=== PATIENT | female | born 1990 | race African-American/Black ===

== ENCOUNTER 2024-05-09 23:21 | Emergency (ER) | payer OTHER, SELFPAY ==
[2024-05-09 23:22] VITALS: BP 106/75; PULSE 73; RESP 16; TEMP 36.6; O2SAT 98; BMI 29.1
--- NOTE | 2024-05-10 00:22 | RAD_ITS ---
EXAM: XR CHEST, 1 VIEW CLINICAL INDICATION: PAIN TECHNIQUE: Frontal view of the chest. COMPARISON: No relevant prior studies available. FINDINGS: LUNGS AND PLEURAL SPACES: Unremarkable. No consolidation or edema. No pneumothorax. No effusion. HEART: Unremarkable. Cardiac silhouette not enlarged. MEDIASTINUM: Central airways and mediastinal contour are unremarkable. 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 SOFT TISSUES: Unremarkable. RAD/Chest 1 View (Portable) IMPRESSION: 1. No acute abnormalities identified in the chest. 2. 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 Electronically Signed: Ramy Griffith MD at 1:17 EDT ,
[2024-05-10 00:41] LABS: Absolute Neutrophil Count 2.4 X10^3/uL (2.0-7.7); Basophil# 0.04 X10^3/uL; Basophil% 0.8 % (0-1); Eosinophil# 0.26 X10^3/uL; Eosinophils% 5.1 % (0-5); Hematocrit 37.5 % (37-47); Hemoglobin 11.7 g/dL (12.0-15.0); Lymphocyte % 37.5 % (19-41); Mean Corp Hgb Conc 31.2 g/dL (32-36); Mean Corpuscular Hgb 24.2 pg (27.0-32.0); Mean Corpuscular Volume 77.5 fL (81-99); Mean Platelet Vol. 8.5 fl (6.2-12.0); Monocyte# 0.48 X10^3/uL; Monocyte% 9.5 % (0-10); NRBC Flagged by Analyzer 0 % (0-5); Neutrophil # 2.36 X10^3/uL (2.7-7.7); Neutrophil % 46.7 % (47-70); Platelet Count 369 K/mm3 (150-450); RBC Distribution Width SD 47.8 fl (35.1-43.9); Red Blood Count 4.84 M/mm3 (4.2-5.4); White Blood Count 5.1 K/mm3 (4.4-11.0)
[2024-05-10 01:03] LABS: AST(SGOT) 15 U/L (15-37); Alanine Aminotransfer ALT/SGPT 13 U/L (13-56); Albumin, Serum 3.6 g/dL (3.2-5.0); Alkaline Phosphatase 63 U/L (45-117); Anion Gap 5 (5-15); BUN 7 mg/dL (7-18); BUN/Creat Ratio 9.4 RATIO (10-20); Bilirubin, Direct 0.08 mg/dL (0.00-0.30); Calcium,Total 9.1 mg/dL (8.5-10.1); Chloride 108 mmol/L (98-107); Creatinine, Serum 0.75 mg/dL (0.55-1.02); EST Glomerular Filtration Rate 95 mL/min (>60); Est Glom Filt Rate - Afr Amer 114 mL/min (>60); Estimated Creatinine Clearance 111.16 ml/min; Globulin 3.7 g/dL (2.2-4.2); Glucose 102 mg/dL (74-106); Potassium 3.5 mmol/L (3.5-5.1); Protein, Total 7.3 g/dL (6.4-8.2); Sodium Level 140 mmol/L (136-145)
[2024-05-10 01:05] LABS: Internal QC Validated? YES +Cl - CLEAR BKGD; Pregnancy, Serum, hCG Quali. NEGATIVE Negative; Record Kit Lot#, Serum Preg. 772476
--- NOTE | 2024-05-10 01:16 | EDS_ITS ---
HPI History of Present Illness Chief Complaint: General Illness Informant: patient Narrative Narrative: Use of hospital computer mime artist was utilized in the care of this patient. 33-year-old female states that for the past couple days she has had generalized muscle soreness more pronounced in the right shoulder. Patient also states that she has not had a period for about 2 months. Other than this she denies other symptoms. Patient answers minimally to questions even if they are open-ended questions. Is very difficult to get a history from her as she has a paucity of information it seems. She denies any known trauma. She denies shortness of breath or chest pain. Patient wonders if she had a fever this morning. She is not febrile here in the department. She denies any cough runny nose or sore throat. No dysuria. [facility] Medical History Broken arm Home Medications ?Medication ?Instructions ?Recorded ?Last Taken ?Type NK 05/09/24 Unknown History Allergy/AdvReac Type Severity Reaction Status Date / Time ibuprofen AdvReac PT UNSURE Verified 05/09/24 23:47 OF REACTION Social History Smoking Status: Never smoker ROS ROS ED Constitutional Constitutional ED: Reports subjective; Denies chills or weight loss Eyes Eyes: Denies change in vision or diplopia ENT ENT ED: Denies ear pain, rhinorrhea or sore throat Cardiovascular Cardiovascular: Denies chest pain, orthopnea, palpitations or racing heartbeat Respiratory/Chest Respiratory/Chest: Denies cough, dyspnea or orthopnea Gastrointestinal Gastrointestinal: Denies abdominal pain, diarrhea, nausea or vomiting Genitourinary Genitourinary ED: Reports other Details: No. X 2 months ; Denies dysuria, hematuria or urinary frequency Musculoskeletal Musculoskeletal: Reports myalgias and other Details: See history of present illness ; Denies arthralgias Integumentary Denies abscess or rash Neurologic Neurologic: Denies headache(s) or weakness Psychiatric Psychiatric: Denies anxiety, depression, suicidal ideation or suicidal thoughts Endocrine Endocrinology: Denies polydipsia, polyphagia or polyuria Allergic/Immunologic Allergic/Immunologic ED: Denies mouth swelling, tongue swelling or urticaria EXAM Physical Exam Const Vital Signs: 05/09/24 23:22 05/09/24 23:48 Temperature 98 F Temperature Source Oral Pulse Rate 73 Respiratory Rate 16 Respiratory Effort Normal Non-Labored Respiratory Pattern Normal Blood Pressure 106/75 Blood Pressure Mean 85 Pulse Ox 98 Oxygen Delivery Method Room Air Positive well nourished and well developed General Appearance ED: well developed HEENT Reports normocephalic, head/scalp atraumatic and moist mucous membranes Eyes PERRL and EOMs intact bilaterally Neck no lymphadenopathy, supple and no JVD Resp normal respiratory effort and clear to auscultation bilaterally Cardio regular rate, regular rhythm and no murmurs GI normal to inspection, nondistended, normoactive bowel sounds and non-tender Palpation: soft Back/Spine no CVA tenderness and normal ROM Extremity normal to inspection General Extremety ED: Negative for edema General Extremity: Negative for edema Neuro oriented x3 and CN's II-XII intact bilaterally Sensorium / Orientation: alert Motor Exam: strength 5/5 throughout Psych mental status grossly normal Mood & Affect: Negative for depressed or tearful Skin no rashes or lesions noted and no wounds MDM MDM MDM Narrative Medical decision making narrative: Differential diagnosis could include viral syndrome myositis dehydration electrolyte abnormalities White count 5.1 hemoglobin 11.7 platelet count of 369 sodium potassium within normal limits glucose of 102 test is negative normal LFTs. CO2 is 27 anion gap is 5. My independent interpretation the chest x-ray is no acute process. Patient is normal tensive she is not tachycardic she is afebrile. Unfortunately as explained to the patient her symptoms are very nonspecific. I recommend she take Tylenol and or Motrin. She she can follow-up with primary care if not improving but if she does develop some new symptoms we are happy to see her back. Patient asked for referral to gynecology you can give her refer her to them as well History & Record Review Discussion w/independent historian: Patient Lab Data Attestation: I reviewed the patient's lab results. Labs: Laboratory Results - last 24 hr 05/10/24 00:34 WBC 5.1 RBC 4.84 Hgb 11.7 L Hct 37.5 MCV 77.5 L MCH 24.2 L MCHC 31.2 L RDW Std Deviation 47.8 H RDW Coeff of Shalini 17.0 H Plt Count 369 MPV 8.5 Immature Gran % (Auto) 0.400 Neut % (Auto) 46.7 L Lymph % (Auto) 37.5 [place] % (Auto) 9.5 Eos % (Auto) 5.1 H Baso % (Auto) 0.8 Absolute Neuts (auto) 2.4 Absolute Lymphs (auto) 1.90 Nucleated RBC % 0 Sodium 140 Potassium 3.5 Chloride 108 H Carbon Dioxide 27.0 Anion Gap 5 BUN 7 Creatinine 0.75 Estim Creat Clear Calc 111.16 Est GFR (MDRD) Af Amer 114 Est GFR (MDRD) Non-Af 95 BUN/Creatinine Ratio 9.4 L Glucose 102 Calcium 9.1 Total Bilirubin 0.30 Direct Bilirubin 0.08 AST 15 ALT 13 Alkaline Phosphatase 63 Total Protein 7.3 Albumin 3.6 Globulin 3.7 Serum , Qual NEGATIVE Radiography Diagnostic Testing: Clinical Impression(s) from Imaging Studies Chest X-Ray 05/10/24 00:22 IMPRESSION: 1. No acute abnormalities identified in the chest. 2. 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 Electronically Signed: Ramy Griffith MD at 1:17 EDT , Discharge Plan Triage Chief Complaint: General Illness ED Provider: Quinn Hooker Dx/Rx/DC Orders Clinical Impression: Myalgia, Amenorrhea Prescriptions: No Action NK Primary Care Provider: Care Physician,No Primary Referrals: Ayah Tinoco MD [Med Staff - Active Staff] - 3-5 Days if not improving Care Physician,No Primary [Primary Care Provider] - Lesa Vargas NP, NAIL ASSEMBLY MACHINE OPERATOR-C [Med Staff - Adv Practice Prof] - As soon as possible (for gynecology ) Print Language: Occitan Disposition Disposition: Home, Self Care
[2024-05-10 02:06] VITALS: BP 98/57; PULSE 78; RESP 16; TEMP 36.6; O2SAT 97
== END 2024-05-10 02:13 | disposition home or self-care (01) ==
PROVIDERS: Emergency Provider Emergency Medicine; Visit Provider Emergency Medicine
DX: M79.10 Myalgia, unspecified site (principal); N91.2 Amenorrhea, unspecified
CPT/HCPCS: 71045; 80048; 80076; 84703; 85025; 99283; A4216

== ENCOUNTER 2024-05-19 13:18 | Emergency (ER) | payer OTHER, MEDICAID, SELFPAY ==
[2024-05-19 13:18] VITALS: BP 112/78; PULSE 91; RESP 18; TEMP 36.8; O2SAT 100; BMI 30.1
--- NOTE | 2024-05-19 14:33 | EDS_ITS ---
HPI HPI - Female History of Present Illness Chief Complaint: Vag Bleeding Detail of Chief Complaint: Vaginal bleeding Informant: patient Narrative Narrative: Patient presents with vaginal bleeding that started 15 days ago. Patient states that she missed a period in March and then started having vaginal bleeding 15 days ago and continues to bleed. She is going through about 3 pads per day. She denies clots. She tells me she is not bleeding heavily. She has history of polycystic ovarian syndrome. She does not have an SEAMING MACHINE OPERATOR here in the [facility] as she is from [facility] and speaks Creole. Used iPad per diem interpreter to obtain history. Patient denies feeling lightheaded or dizzy. She denies abdominal pain. She does not think she is . [facility] Medical History Broken arm Home Medications ?Medication ?Instructions ?Recorded ?Last Taken ?Type norethindrone acetate 5 mg tablet 5 mg PO DAILY #30 tabs 05/19/24 Unknown Rx Allergy/AdvReac Type Severity Reaction Status Date / Time ibuprofen AdvReac PT UNSURE Verified 05/19/24 13:20 OF REACTION Social History Smoking Status: Never smoker ROS ROS ED Review of Systems ROS Unobtainable: other Constitutional Constitutional ED: Reports lethargy; Denies chills, fever(s), sweats or weight loss Eyes Eyes: Denies blurry vision, change in vision or diplopia ENT ENT ED: Denies rhinorrhea or sore throat Cardiovascular Cardiovascular: Reports chest pain and racing heartbeat; Denies orthopnea Respiratory/Chest Respiratory/Chest: Reports dyspnea and dyspnea on exertion; Denies cough, orthopnea or sputum Gastrointestinal Gastrointestinal: Denies abdominal pain, diarrhea, nausea or vomiting Genitourinary Genitourinary ED: Reports other Details: Vaginal bleeding ; Denies dysuria, hematuria or urinary frequency Musculoskeletal Musculoskeletal: Denies arthralgias, back pain, myalgias or neck pain Integumentary Denies abscess, Abrasions or rash Neurologic Neurologic: Denies headache(s) or weakness Psychiatric Psychiatric: Denies anxiety, depression or suicidal thoughts Endocrine Endocrinology: Denies polydipsia, polyphagia or polyuria Hematologic/Lymphatic Hematologic/Lymphatic: Denies easy bleeding, easy bruising or lymphadenopathy Allergic/Immunologic Allergic/Immunologic ED: Denies mouth swelling, tongue swelling or urticaria EXAM Physical Exam Const Vital Signs: 05/19/24 13:18 05/19/24 15:18 Temperature 98.2 F Temperature Source Oral Pulse Rate 91 67 Respiratory Rate 18 16 Blood Pressure 112/78 118/78 Blood Pressure Mean 89 91 Pulse Ox 100 99 Oxygen Delivery Method Room Air Room Air Positive well nourished and well developed General Appearance ED: well developed and NAD HEENT Reports TM's clear and moist mucous membranes normocephalic and atraumatic; Negative for trauma or tenderness Tympanic Membrane ED: Yes TM's clear Eyes PERRL and EOMs intact bilaterally General Eye ED: Negative for pale conjunctiva or scleral icterus Neck no lymphadenopathy, supple and no JVD General: Negative for tenderness Chest Wall inspection of chest normal and palpation of chest normal Chest: Negative for tenderness Resp normal respiratory effort and clear to auscultation bilaterally Effort and Inspection: Negative for respiratory distress or pain with movement Auscultation: Negative for rhonchi, wheezes or diminished lung sounds Cardio regular rate, regular rhythm, S1 normal heart sound, S2 normal heart sound and no murmurs Peripheral Pulses: pulses 2+ throughout GI normal to inspection, nondistended, normoactive bowel sounds, soft to palpation, non-tender, non-distended and no masses Back/Spine no CVA tenderness and no thoracic nor lumbar tenderness Extremity normal to inspection General Extremety ED: Negative for edema General Extremity: Negative for edema Neuro oriented x3, CN's II-XII intact bilaterally, no sensory deficits noted and gait normal Sensorium / Orientation: awake, alert, oriented to person, oriented to place and oriented to time Motor Exam: strength 5/5 throughout and strength abnormal Psych mental status grossly normal Skin no rashes or lesions noted and no wounds MDM MDM MDM Narrative Medical decision making narrative: Patient presents with vaginal bleeding x 15 days. History of polycystic ovarian syndrome. IV line established. CBC with differential count 5.7 with hemoglobin 11.9 and platelet count of 294. hCG was negative. Urinalysis normal. Clinically she looks well. Stable vital signs. Discussed case with SEAMING MACHINE OPERATOR on- call Dr. Boone who asked that I start patient on Aygestin and set up outpatient follow-up for her next week on May 23. Patient discharged to home in stable condition advised return if persistent heavy bleeding, passing clots, lightheadedness, or condition should worsen anyway. Lab Data Attestation: I reviewed the patient's lab results. Labs: Laboratory Results - last 24 hr 05/19/24 05/19/24 14:38 15:40 WBC 5.7 RBC 4.88 Hgb 11.9 L Hct 38.2 MCV 78.3 L MCH 24.4 L MCHC 31.2 L RDW Std Deviation 50.2 H RDW Coeff of Shalini 17.7 H Plt Count 394 MPV 8.9 Immature Gran % (Auto) 0.200 Neut % (Auto) 44.1 L Lymph % (Auto) 37.7 [place] % (Auto) 11.8 H Eos % (Auto) 5.5 H Baso % (Auto) 0.7 Absolute Neuts (auto) 2.5 Absolute Lymphs (auto) 2.14 Nucleated RBC % 0 Serum , Qual NEGATIVE Urine Color Yellow Urine Clarity Clear Urine pH 8.0 Ur Specific [place] 1.015 Urine Protein Negative Urine Glucose (UA) Normal Urine Ketones Negative Urine Occult Blood 250 H Urine Nitrite Negative Urine Bilirubin Negative Urine Urobilinogen Normal Ur Leukocyte Esterase Negative Urine RBC 10-25 SEEN Urine WBC 0 SEEN Ur Squamous Epith Cells 0-5 SEEN Urine Bacteria 0 SEEN Urine Mucus 0 SEEN Discharge Plan Triage Chief Complaint: Vag Bleeding ED Provider: Efrain Larios Dx/Rx/DC Orders Clinical Impression: DUB (dysfunctional uterine bleeding) Prescriptions: New norethindrone acetate 5 mg tablet 5 mg PO DAILY Qty: 30 0RF Rx Instructions: 1 tab bid for 3 days then 1 tab daily Primary Care Provider: Care Physician,No Primary Referrals: Bekah Boone MD [Med Staff - Active Staff] - 05/23/24 11:40 am Care Physician,Diamond Primary [Primary Care Provider] - Print Language: Namibian Creole
[2024-05-19 14:45] LABS: Absolute Lymphocyte Count 2.14 X10^3/uL (0.83-4.51); Absolute Neutrophil Count 2.5 X10^3/uL (2.0-7.7); Basophil# 0.04 X10^3/uL; Basophil% 0.7 % (0-1); Eosinophil# 0.31 X10^3/uL; Eosinophils% 5.5 % (0-5); Hematocrit 38.2 % (37-47); Hemoglobin 11.9 g/dL (12.0-15.0); Lymphocyte # 2.14 X10^3/ul (0.83-4.51); Lymphocyte % 37.7 % (19-41); Mean Corp Hgb Conc 31.2 g/dL (32-36); Mean Corpuscular Hgb 24.4 pg (27.0-32.0); Mean Corpuscular Volume 78.3 fL (81-99); Mean Platelet Vol. 8.9 fl (6.2-12.0); Monocyte# 0.67 X10^3/uL; Monocyte% 11.8 % (0-10); NRBC Flagged by Analyzer 0 % (0-5); Neutrophil # 2.51 X10^3/uL (2.7-7.7); Neutrophil % 44.1 % (47-70); Platelet Count 394 K/mm3 (150-450); RBC Distribution Width CV 17.7 % (11.6-14.6); RBC Distribution Width SD 50.2 fl (35.1-43.9); Red Blood Count 4.88 M/mm3 (4.2-5.4); White Blood Count 5.7 K/mm3 (4.4-11.0)
[2024-05-19 15:08] LABS: Internal QC Validated? YES +Cl - CLEAR BKGD; Pregnancy, Serum, hCG Quali. NEGATIVE Negative
[2024-05-19 15:18] VITALS: BP 118/78; PULSE 67; RESP 16; O2SAT 99
[2024-05-19 15:51] LABS: Bacteria 0 SEEN /hpf (None Seen); Mucous, Urine 0 SEEN /hpf (<or=2+); White Blood Cells 0 SEEN /hpf (0-5)
[2024-05-19 15:54] LABS: Color, Urine Yellow (Yellow); Glucose, Dipstick Normal (Normal); Ketone-Dipstick Negative (Negative); Leukocyte Esterase-Dipstick Negative /ul (Negative); Nitrite-Dipstick Negative (Negative); Occult Blood-Urine 250 /ul (Negative); Protein-Dipstick Negative (Negative); Specific Gravity, Urine 1.015 (1.002-1.030); Urine Bilirubin Dipstick Negative (Negative); Urine Clarity Clear (Clear); Urine Urobilinogen Normal (Normal)
[2024-05-19 16:02] LABS: Red Blood Cells-Urine 10-25 SEEN /hpf (0-5); Squamous Epithelial Cells - UA 0-5 SEEN /hpf (5-10)
[2024-05-19 16:43] VITALS: BP 118/76; PULSE 64; RESP 16; TEMP 36.3; O2SAT 99
== END 2024-05-19 16:44 | disposition home or self-care (01) ==
LOC: ED 14:56
PROVIDERS: Emergency Provider Emergency Medicine; Referring Provider Emergency Medicine; Visit Provider Emergency Medicine
DX: N93.8 Other specified abnormal uterine and vaginal bleeding (principal)
CPT/HCPCS: 81001; 84703; 85025; 99282

== ENCOUNTER → 2024-05-23 | Outpatient (CLI) | payer MEDICAID, SELFPAY ==
[2024-05-23 12:48] LABS: hCG Titer Quant., Serum < 1 mIU/mL (1-3)
[2024-05-23 12:51] LABS: T4 Free Direct 0.81 ng/dL (0.76-1.46)
[2024-05-29 15:10] LABS: Thyroid Peroxidase AB 13 IU/mL (0-34)
[2024-05-31 10:09] LABS: HPV APTIMA, High Risk Negative (Negative)
== END | disposition home or self-care (01) ==
PROVIDERS: Referring Provider Nurse Practitioner Women's Health; Visit Provider Nurse Practitioner Women's Health
DX: Z12.4 Encounter for screening for malignant neoplasm of cervix (principal); Z11.3 Encounter for screening for infections with a predominantly sexual mode of transmission; N93.8 Other specified abnormal uterine and vaginal bleeding
CPT/HCPCS: 36415; 84439; 84443; 84702; 86376; 87070; 87205; 87491; 87591; 87624; 88175; G0145

== ENCOUNTER 2024-05-26 17:22 | Emergency (ER) | payer MEDICAID, SELFPAY ==
[2024-05-26 17:24] VITALS: BP 117/75; PULSE 80; RESP 14; TEMP 36.6; O2SAT 98; BMI 31.9
[2024-05-26 18:21] VITALS: BP 108/80; BP 110/70; BP 116/84; PULSE 73; PULSE 90
[2024-05-26 18:23] VITALS: BP 109/82; PULSE 80; RESP 19; O2SAT 98
[2024-05-26 18:37] LABS: Absolute Lymphocyte Count 2.47 X10^3/uL (0.83-4.51); Absolute Neutrophil Count 3.7 X10^3/uL (2.0-7.7); Basophil# 0.03 X10^3/uL; Basophil% 0.4 % (0-1); Eosinophil# 0.15 X10^3/uL; Eosinophils% 2.1 % (0-5); Hematocrit 36.4 % (37-47); Hemoglobin 11.4 g/dL (12.0-15.0); Lymphocyte # 2.47 X10^3/ul (0.83-4.51); Lymphocyte % 34.9 % (19-41); Mean Corp Hgb Conc 31.3 g/dL (32-36); Mean Corpuscular Hgb 24.1 pg (27.0-32.0); Mean Corpuscular Volume 76.8 fL (81-99); Monocyte# 0.69 X10^3/uL; Monocyte% 9.8 % (0-10); NRBC Flagged by Analyzer 0 % (0-5); Neutrophil # 3.73 X10^3/uL (2.7-7.7); Neutrophil % 52.8 % (47-70); Platelet Count 383 K/mm3 (150-450); RBC Distribution Width CV 17.6 % (11.6-14.6); RBC Distribution Width SD 48.8 fl (35.1-43.9); Red Blood Count 4.74 M/mm3 (4.2-5.4); White Blood Count 7.1 K/mm3 (4.4-11.0)
[2024-05-26 18:52] LABS: Internal QC Validated? YES +Cl - CLEAR BKGD; Pregnancy, Serum, hCG Quali. NEGATIVE Negative
[2024-05-26 19:00] VITALS: BP 106/65; PULSE 65; RESP 15; O2SAT 99
--- NOTE | 2024-05-26 20:42 | EDS_ITS ---
HPI History of Present Illness Chief Complaint: Dizziness Detail of Chief Complaint: Lightheadedness and vaginal bleeding Informant: patient Onset/Context/Timing Onset: Days Context: Sudden Onset Timing: Continuous and Waxes and wanes Quality: Vaginal bleeding Location: Vaginal bleeding Current Severity: Mild Maximum Severity: Moderate Worsened by: Unknown Relieved by: Methergine initially worked Associated Symptoms Associated Symptoms: Lightheadedness Narrative Narrative: Patient is a 33-year-old [place] Creole speaking woman. However she was able to answer some of my questions even for the flight engineer performance qualified translated for her. She apparently was seen a couple of days ago by Dr. Gates. She was placed on medication. I have been made aware that they registers a new patient and reason why prior visits are not available. I asked the registration person to give me her old number so I can review Dr. Gates's note and her prior laboratory tests and ultrasound. Patient began to bleed yesterday heavier than she was. She went through 3 pads in 24 hours. By the time I was able to speak with her she states the bleeding stopped. She took the medicine prior to coming in. She states she did not discontinue taking the medicine she was prescribed. She denies symptoms of . She denies any bleeding disorder, specifically von Willebrand's Prior similar symptoms: Yes Recent Illness/Hospitalization: Yes PFSH PFSH Medical History no medical history Home Medications ?Medication ?Instructions ?Recorded ?Last Taken ?Type norethindrone acetate 5 mg tablet 5 mg PO DAILY 05/26/24 Unknown History Allergy/AdvReac Type Severity Reaction Status Date / Time ibuprofen (From Motrin) AdvReac Nausea Verified 05/26/24 17:32 Surgical History no surgical history Social History Smoking Status: Never smoker ROS ROS ED Constitutional Constitutional ED: Denies chills or fever(s) Cardiovascular Cardiovascular: Denies chest pain or palpitations Respiratory/Chest Respiratory/Chest: Denies dyspnea or dyspnea on exertion Gastrointestinal Gastrointestinal: Denies abdominal pain, nausea or vomiting Musculoskeletal Musculoskeletal: Denies back pain Hematologic/Lymphatic Hematologic/Lymphatic: Reports systems reviewed and no addt'l complaints, except as documented EXAM Physical Exam Const Vital Signs: 05/26/24 17:24 05/26/24 18:21 05/26/24 18:23 Temperature 98 F Temperature Source Temporal Pulse Rate 80 80 Pulse Rate [Lying] 73 Pulse Rate [Sitting (for 1 minute prior to obtaining)] 90 Pulse Rate [Standing (for 1 minute prior to obtaining)] 90 Respiratory Rate 14 19 H Blood Pressure 117/75 109/82 H Blood Pressure [Lying] 110/70 Blood Pressure [Sitting (for 1 minute prior to obtaining)] 108/80 Blood Pressure [Standing (for 1 minute prior to obtaining)] 116/84 H Blood Pressure Mean 89 91 Blood Pressure Mean [Lying] 83 Blood Pressure Mean [Sitting (for 1 minute prior to obtaining)] 89 Blood Pressure Mean [Standing (for 1 minute prior to obtaining)] 94 Pulse Ox 98 98 Oxygen Delivery Method Room Air Room Air 05/26/24 19:00 Temperature Temperature Source Pulse Rate 65 Pulse Rate [Lying] Pulse Rate [Sitting (for 1 minute prior to obtaining)] Pulse Rate [Standing (for 1 minute prior to obtaining)] Respiratory Rate 15 Blood Pressure 106/65 Blood Pressure [Lying] Blood Pressure [Sitting (for 1 minute prior to obtaining)] Blood Pressure [Standing (for 1 minute prior to obtaining)] Blood Pressure Mean 78 Blood Pressure Mean [Lying] Blood Pressure Mean [Sitting (for 1 minute prior to obtaining)] Blood Pressure Mean [Standing (for 1 minute prior to obtaining)] Pulse Ox 99 Oxygen Delivery Method Room Air Positive well nourished and well developed Constitutional Narrative: Orthostatic vital signs were normal. General Appearance ED: well developed and NAD; Negative for pallor HEENT Reports moist mucous membranes HEENT Narrative: Head is atraumatic normocephalic. Ears normal. Eyes PERRL and EOMs intact bilaterally General Eye ED: Negative for pale conjunctiva Neck no lymphadenopathy, supple and no JVD Resp normal respiratory effort and clear to auscultation bilaterally Cardio regular rate, regular rhythm, S1 normal heart sound, S2 normal heart sound and no murmurs GI normal to inspection, nondistended, normoactive bowel sounds, non-tender, non- distended and no masses; Negative for hepatosplenomegaly Back/Spine no CVA tenderness Extremity normal to inspection Neuro oriented x3 and CN's II-XII intact bilaterally Sensorium / Orientation: alert Psych mental status grossly normal Skin no rashes or lesions noted, no wounds and skin turgor normal General Skin Exam: Negative for jaundice or pallor MDM MDM MDM Narrative Medical decision making narrative: Based on initial symptoms documented by triage nurse orthostatic vital signs were obtained, CBC to assess H&H and platelet count and serum test because there was no prior studies available. It was not until I used the flight engineer performance qualified service that I was made aware that she was seen by Dr. Gates earlier this month. Lab Data Attestation: I reviewed the patient's lab results. Lab results narrative: Patient's H and H was 11.7 and 36 on November 07. There was no significant change when blood work was obtained May [address] Gates. She was seen on the first for amenorrhea. She did have an ultrasound which revealed enlarged endometrial wall/thickening. There also was a fibroid that was noted and necrotic. Her case was discussed with Dr. Bekah Boone. Patient is anemic with microcytic indices. H&H 11.4 and 36.5 with a MCV of 76.8. Serum test is negative. Labs: Laboratory Results - last 24 hr 05/26/24 17:52 WBC 7.1 RBC 4.74 Hgb 11.4 L Hct 36.4 L MCV 76.8 L MCH 24.1 L MCHC 31.3 L RDW Std Deviation 48.8 H RDW Coeff of Shalini 17.6 H Plt Count 383 MPV 9.0 Immature Gran % (Auto) 0.000 Neut % (Auto) 52.8 Lymph % (Auto) 34.9 [place] % (Auto) 9.8 Eos % (Auto) 2.1 Baso % (Auto) 0.4 Absolute Neuts (auto) 3.7 Absolute Lymphs (auto) 2.47 Nucleated RBC % 0 Serum , Qual NEGATIVE Antibody Screen NEGATIVE Treatment and Re-Evaluation :: Since patient had ultrasound and has had 2 prior visits for GEOMORPHOLOGIST issues in my opinion pelvic exam is not required at this time since her bleeding stopped. She will need to follow-up with Dr. Don Dickey. Discharge Plan Triage Chief Complaint: Dizziness ED Provider: Chano Denney Dx/Rx/DC Orders Clinical Impression: Menorrhagia, Microcytic anemia Instructions: ED Anemia, Iron-Deficiency (Adult), ED Heavy Menstrual Bleeding Prescriptions: No Action norethindrone acetate 5 mg tablet 5 mg PO DAILY Rx Instructions: 1 tab twice daily for three days then 1 tab daily Primary Care Provider: Care Physician,No Primary Referrals: Bekah Boone MD [Med Staff - Active Staff] - 5-7 Days Care Physician,No Primary [Primary Care Provider] - Activity Restrictions/Additional Instructions: Take the medication you were prescribed as instructed by Dr. Gates. Take 1 iron tablet in the morning and 1 iron tablet in the evening for your microcytic anemia Print Language: Nicaraguan Felicia Disposition Disposition: Home, Self Care
[2024-05-26 20:48] VITALS: PULSE 82; RESP 20; O2SAT 98
[2024-05-26 21:00] VITALS: BP 107/78; PULSE 78; RESP 16; TEMP 36.7; O2SAT 97
== END 2024-05-26 21:01 | disposition home or self-care (01) ==
PROVIDERS: Emergency Provider Emergency Medicine; Visit Provider Emergency Medicine
DX: R42 Dizziness and giddiness (principal); D50.9 Iron deficiency anemia, unspecified; N92.0 Excessive and frequent menstruation with regular cycle; N93.8 Other specified abnormal uterine and vaginal bleeding
CPT/HCPCS: 76830; 76856; 84703; 85025; 86850; 86900; 86901; 99285; A4216

== ENCOUNTER → 2024-05-26 | Outpatient (CLI) | payer MEDICAID, SELFPAY ==
--- NOTE | 2024-05-26 16:03 | US_ITS ---
ACR Level 3 findings have been noted. An addendum which confirms receipt of the report will follow. INDICATION: bleeding X 20 DAYS EXAMINATION: Ultrasound US Pelvis Non OB Complete With Transvaginal Imaging TECHNIQUE: Transabdominal and transvaginal pelvic ultrasound was performed. Grayscale, spectral waveform, and color flow Doppler evaluation of the adnexa. COMPARISON: None. FINDINGS: UTERUS: Retroverted. The uterus measures 9.1 x 6.8 x 5.9 cm. Oval, anechoic lesion with posterior acoustic enhancement adjacent to the uterine fundus measures 1.8 x 1.7 x 1.7 cm. The endometrial stripe measures 22 mm in AP diameter which is thickened for a premenopausal patient. RIGHT OVARY: 4.9 x 2.7 x 2.3 cm. Non-enlarged, normal echogenicity. There is normal arterial inflow and venous outflow present in the right ovary. Echogenic nodule with internal vascularity at the periphery of the right ovary measures 1.4 x 1.4 x 1.2 cm. LEFT OVARY: 3.9 x 3.6 x 1.4 cm. Non-enlarged, normal echogenicity. There is normal arterial inflow and venous outflow present in the left ovary. FREE FLUID: None. US/Pelvic w/ Transvaginal IMPRESSION: Abnormally thickened endometrium for a premenopausal female, likely endometrial hyperplasia. Recommend gynecological consultation. Probable necrotic subserosal fundal fibroid, 1.8 cm. Echogenic nodule within the right ovary, 1.4 cm greatest dimension. Possible ovarian dermoid. Again gynecological consultation advised. Electronically Signed: Celso Li MD at 18:30 EDT ,
== END | disposition home or self-care (01) ==
LOC: US 16:03
PROVIDERS: Referring Provider Nurse Practitioner Women's Health; Visit Provider Nurse Practitioner Women's Health
DX: N93.8 Other specified abnormal uterine and vaginal bleeding (principal)
CPT/HCPCS: 76830; 76856

== ENCOUNTER 2025-04-20 09:39 | Emergency (ER) | payer MEDICAID, SELFPAY ==
[2025-04-20 09:40] VITALS: BP 119/84; PULSE 81; RESP 14; TEMP 37.2; O2SAT 98; BMI 36.6
--- NOTE | 2025-04-20 10:06 | US_ITS ---
PROCEDURE: GALLBLADDER 04/20/2025 REASON FOR EXAM: RUQ PAIN TECHNIQUE: Procedure Code: USGB Modality: US Procedure: GALLBLADDER COMPARISON: CT of the abdomen and pelvis dated 04/20/2025 FINDINGS: Liver: The liver is normal in size and echo architecture. There is no focal liver lesion seen. No biliary ductal dilatation present. Gallbladder: Gallbladder is normal. There is no wall thickening or pericholecystic fluid. No sonographic Corral sign elicited during the exam. Common bile duct: Normal measuring 3 mm. Pancreas: Obscured by bowel gas. Right kidney: Normal right kidney measuring 11 cm in length. There is no hydronephrosis or nephrolithiasis. Other: No ascites. US/Gallbladder IMPRESSION: Unremarkable appearance of the liver and biliary tree. Normal gallbladder. Normal right kidney. Reading Location: [facility]
--- NOTE | 2025-04-20 10:08 | EX.ED.DYSGE1 ---
HPI History of Present Illness Chief Complaint: Abd Pain Narrative Narrative: Professional interpretive services used Patient is a 34-year-old female with sugar issues who presents to the emergency department chief complaint of abdominal pain. States this has been going on for approximately 15 days and has been progressively worsening. States that now she is having right shoulder pain with it and describes a sensation of warmth in her abdomen. Patient denies any sick contacts. Denies any previous abdominal surgeries. States that nothing makes this better or worse PFSH PFSH Medical History Ovarian cyst Broken arm Home Medications ?Medication ?Instructions ?Recorded ?Last Taken ?Type omeprazole 40 mg capsule,delayed 40 mg PO DAILY #30 caps 04/20/25 Unknown Rx release ondansetron 4 mg disintegrating 4 mg PO Q6H PRN nausea and 04/20/25 Unknown Rx tablet vomiting #20 tabs Allergy/AdvReac Type Severity Reaction Status Date / Time ibuprofen AdvReac PT UNSURE Verified 04/20/25 09:41 OF REACTION Surgical History History of surgery on arm Social History current occupational status: employed current occupation: [employer] Smoking Status: Never smoker alcohol intake: never substance use type: does not use seatbelt use: always do you feel safe at home: Yes additional social history: Single ROS ROS ED ROS Narrative Constitutional: Denies any fevers, chills, headaches Cardiovascular: Denies chest pain Respiratory: Denies shortness of breath Abdomen: Complains of abdominal pain as noted above denies nausea vomiting diarrhea denies black stools or dark tarry stools denies blood in her stool : Denies any urinary symptoms Neurological: Denies numbness, wheeze, tingling Musculoskeletal: Complains of right shoulder pain as noted above Skin: Denies any rashes or lesions EXAM Physical Exam Narrative Exam Narrative: General: Patient was lying in bed rest comfortably did not appear to be in acute distress Head: Atraumatic, normocephalic Eyes: PERRL bilaterally, EOMI bilaterally, no conjunctival injection noted Neck: Soft, supple, trachea midline Cardiovascular: Regular rate and rhythm Respiratory: Clear to auscultation bilaterally Abdomen: Soft, nondistended, no diffuse tenderness to palpation however she does appear to have increased tenderness to palpation in the right lower quadrant in the right upper quadrant no rebound or guarding on exam Musculoskeletal: Patient has full range of motion of her right shoulder without any pain elicited Extremities: Radial pulses +2/4 in the bilateral extremities, +5/5 strength noted in the bilateral upper and lower extremities Neurological: Patient following commands knew that she was at [facility] year is 2024 Skin: Warm, dry, intact no rashes lesions noted Const Vital Signs: 04/20/25 09:40 04/20/25 11:55 Temperature 98.9 F Temperature Source Temporal Pulse Rate 81 92 Respiratory Rate 14 14 Blood Pressure 119/84 H 102/69 Blood Pressure Mean 95 80 Pulse Ox 98 100 Oxygen Delivery Method Room Air Room Air MDM MDM MDM Narrative Medical decision making narrative: Patient is a 34-year-old female who presents to the emergency department chief complaint of abdominal pain. On the differential diagnosis includes but not limited to pancreatitis, cholecystitis, appendicitis, bowel obstruction, GERD. Once workup is obtained reviewed she will be reevaluated. Patient given IV fluids and Zofran. Patient's CBC reviewed and showed a white blood count of 5.7, hemoglobin is down to 7.7 however she has a microcytic anemia with MCV of 71.1, platelet count of 475. Patient sodium normal at 139, potassium normal 3.7, creatinine was noted to be normal at 0.70. Patient AST and ALT normal at 29 and 11 respectively with a normal total bilirubin 0.32. Patient lipase normal at 35, test was negative, urinalysis reviewed and showed no evidence of infection. Patient's x-ray of her shoulder reviewed by myself by radiology and showed a old distal right clavicle fracture which is similar in comparison to previous studies. No acute fracture or dislocation. Patient CT ab pelvis IV contrast reviewed which showed 2.3 cm cyst in the lateral lower pole of the left kidney. Endometrial thickening most likely related to her menstrual phase multiple small bilateral ovarian follicles noted. Patient's gallbladder ultrasound reviewed showed no acute findings. Patient was given GI cocktail On reevaluation patient she is feeling better she would like to go home. She advised that she needs to follow-up on her microcytic anemia with her doctor as well as she will be given a prescription for GERD in the outpatient setting. She denies return with worsening symptoms or concerns. She is advised to follow-up with a general surgeon for which she was referred to as well. All course concerns answered she was discharged home in stable condition. Lab Data Labs: Laboratory Results - last 24 hr 04/20/25 04/20/25 10:20 11:44 WBC 5.7 RBC 3.57 L Hgb 7.7 L Hct 25.4 L MCV 71.1 L MCH 21.6 L MCHC 30.3 L RDW Std Deviation 47.7 H RDW Coeff of Shalini 18.6 H Plt Count 475 H MPV 8.8 Immature Gran % (Auto) 0.500 Neut % (Auto) 50.1 Lymph % (Auto) 37.0 Fajardo % (Auto) 7.7 Eos % (Auto) 4.2 Baso % (Auto) 0.5 Absolute Neuts (auto) 2.8 Absolute Lymphs (auto) 2.10 Nucleated RBC % 0 Sodium 139 Potassium 3.7 Chloride 105 Carbon Dioxide 22.7 Anion Gap 11 BUN 6 Creatinine 0.70 Estim Creat Clear Calc 107.66 Est GFR (MDRD) Non-Af 116 BUN/Creatinine Ratio 9.0 L Glucose 92 Calcium 9.0 Total Bilirubin 0.32 AST 29 ALT 11 Alkaline Phosphatase 65 Total Protein 7.6 Albumin 4.5 Globulin 3.1 Albumin/Globulin Ratio 1.4 Lipase 35 Serum , Qual NEGATIVE Urine Color Yellow Urine Clarity Clear Urine pH 6.5 Ur Specific [place] 1.010 Urine Protein 15 H Urine Glucose (UA) Normal Urine Ketones Negative Urine Occult Blood 250 H Urine Nitrite Negative Urine Bilirubin Negative Urine Urobilinogen Normal Ur Leukocyte Esterase Negative Urine RBC 50-100 SEEN Urine WBC 0 SEEN Ur Squamous Epith Cells 0 SEEN Urine Bacteria 0 SEEN Urine Mucus 0 SEEN Radiography Diagnostic Testing: Clinical Impression(s) from Imaging Studies Gallbladder Ultrasound 04/20/25 10:06 IMPRESSION: Unremarkable appearance of the liver and biliary tree. Normal gallbladder. Normal right kidney. Reading Location: [facility] Abdomen/Pelvis CT 04/20/25 10:42 IMPRESSION: 2.3 cm cyst in the lateral lower pole of the left kidney. Endometrial thickening most likely related to the patient's menstrual phase. Multiple small bilateral ovarian follicles. Reading Location: [id number] Shoulder X-Ray 04/20/25 10:45 IMPRESSION: An old distal right clavicular oblique fracture is again seen, appearance similar to the comparison chest x-ray. No significant arthritic process is noted at either the acromioclavicular or glenohumeral joint. No acute fracture or dislocation is seen. Reading Location: [facility] Discharge Plan Triage Chief Complaint: Abd Pain ED Provider: Gildardo Hamilton Dx/Rx/DC Orders Clinical Impression: Abdominal pain, Pain in right shoulder, GERD (gastroesophageal reflux disease) Prescriptions: New omeprazole 40 mg capsule,delayed release(DR/EC) 40 mg PO DAILY Qty: 30 0RF ondansetron 4 mg tablet,disintegrating 4 mg PO Q6H PRN (Reason: nausea and vomiting) Qty: 20 0RF Primary Care Provider: Care Physician,No Primary Referrals: Noble Ponce MD [Med Staff - Active Staff] - Care Physician,No Primary [Primary Care Provider] - Tricia Walton, FISH EGG PACKER-C [[facility]] - Activity Restrictions/Additional Instructions: Follow-up with the 2 doctors you are referred to. Take the prescriptions that were sent to your pharmacy as prescribed. Return with worsening symptoms or any other concerns. Your x-ray of your shoulder did not show acute findings. Your ultrasound your gallbladder was normal as well as the CT of your abdomen. Your blood work showed that you have evidence of a microcytic anemia which she will need to discuss with your primary care physician. Print Language: Bangladeshi Creole Disposition Disposition: Home, Self Care
--- NOTE | 2025-04-20 10:09 | EKG12_ITS ---
Test Reason : O Blood Pressure : */* mmHG Vent. Rate : 101 BPM Atrial Rate : 101 BPM P-R Int : 152 ms QRS Dur : 72 ms QT Int : 294 ms P-R-T Axes : 66 54 66 degrees QTcB Int : 381 ms Sinus tachycardia Nonspecific T wave abnormality Abnormal ECG Confirmed by Nicoh Claros ([id number]), book or script editor WIL LUCAS ([id number]) on 04/23/2025 1:08:42 PM Referred By: LILY Confirmed By: Nicho Claros
[2025-04-20] MEDS: 0.9% Normal Saline (1000mL) 1,000 ML 999 ML IV (10:16)
[2025-04-20 10:33] LABS: Hematocrit 25.4 % (37-47); Hemoglobin 7.7 g/dL (12.0-15.0); Immature Granulocytes Count 0.030 X10^3/uL (0.0-0.0); Mean Corp Hgb Conc 30.3 g/dL (32-36); Mean Corpuscular Volume 71.1 fL (81-99); Mean Platelet Vol. 8.8 fl (6.2-12.0); NRBC Flagged by Analyzer 0 % (0-5); Platelet Count 475 K/mm3 (150-450); RBC Distribution Width CV 18.6 % (11.6-14.6); RBC Distribution Width SD 47.7 fl (35.1-43.9); Red Blood Count 3.57 M/mm3 (4.2-5.4); White Blood Count 5.7 K/mm3 (4.4-11.0)
[2025-04-20 10:39] LABS: Internal QC Validated? YES +Cl - CLEAR BKGD; Pregnancy, Serum, hCG Quali. NEGATIVE Negative; Record Kit Lot#, Serum Preg. 0000964736
--- NOTE | 2025-04-20 10:42 | CT_ITS ---
PROCEDURE: ABDOMEN/PELVIS W IV CONT ONLY 04/20/2025 REASON FOR EXAM: RUQ AND RLQ PAIN History of ovarian cyst. TECHNIQUE: Procedure Code: [id number] Modality: CT Procedure: ABDOMEN/PELVIS W IV CONT ONLY Coronal and Sagittal reconstruction series were provided. CONTRAST: Isovue-300 VOLUME: 100 mL One or more dose reduction techniques were used (e.g., Automated exposure control, adjustment of the mA and/or kV according to patient size, use of iterative reconstruction technique. RADIATION DOSE SUMMARY: CTDlvol: 14.4 mGy DLP: 955.09 mGycm COMPARISON: None FINDINGS: Lung bases: The lung bases are clear. Liver: Normal size. No mass. Gallbladder: The gallbladder is unremarkable. Spleen: Normal size. Pancreas: Normal size without evidence of mass surrounding inflammation or ductal dilation. Adrenals: Unremarkable Kidneys: There is a 2.3 cm cyst in the lateral lower pole of the left kidney. Bladder: Unremarkable Reproductive Organs: The endometrium is thickened measuring 2.6 cm. Multiple small follicles are seen in both ovaries. Bowel: Nonspecific bowel gas pattern. Appendix: Unremarkable Lymph nodes: Unremarkable. Vasculature: The abdominal aorta and IVC are normal. Peritoneum / Retroperitoneum: Unremarkable Bones: Loss of the normal lumbar lordosis. CT/Abdomen/Pelvis W IV Cont ONLY IMPRESSION: 2.3 cm cyst in the lateral lower pole of the left kidney. Endometrial thickening most likely related to the patient's menstrual phase. Multiple small bilateral ovarian follicles. Reading Location: [facility]
--- NOTE | 2025-04-20 10:45 | RAD_ITS ---
PROCEDURE: SHOULDER MIN 2 VIEWS 04/20/2025 REASON FOR EXAM: PAIN TECHNIQUE: Procedure Code: RADSH Modality: DX Procedure: SHOULDER MIN 2 VIEWS Laterality: Right COMPARISON: Chest x-ray of 05/10/2024. RAD/Shoulder min 2 Views IMPRESSION: An old distal right clavicular oblique fracture is again seen, appearance simil ar to the comparison chest x-ray. No significant arthritic process is noted at either the acromioclavicular or gl enohumeral joint. No acute fracture or dislocation is seen. Reading Location: [place] [id number]
[2025-04-20 11:29] LABS: Lipase 35 U/L (13-75)
[2025-04-20 11:44] LABS: AST(SGOT) 29 U/L (<=31); Alanine Aminotransfer ALT/SGPT 11 U/L (<=34); Albumin, Serum 4.5 g/dL (3.5-5.0); Alkaline Phosphatase 65 U/L (35-104); Anion Gap 11 (5-15); BUN 6 mg/dL (4-19); BUN/Creat Ratio 9.0 RATIO (10-20); Calcium,Total 9.0 mg/dL (7.6-11.0); Carbon Dioxide 22.7 mmol/L (21.0-32.0); Chloride 105 mmol/L (98-108); Estimated Creatinine Clearance 107.66 ml/min (50-250); Globulin 3.1 g/dL (2.2-4.2); Glucose 92 mg/dL (70-99); Potassium 3.7 mmol/L (3.3-5.1)
[2025-04-20 11:47] LABS: Mucous, Urine 0 SEEN /hpf (<or=2+); Squamous Epithelial Cells - UA 0 SEEN /hpf (5-10)
[2025-04-20 11:49] LABS: Color, Urine Yellow (Yellow); Glucose, Dipstick Normal (Normal); Ketone-Dipstick Negative (Negative); Leukocyte Esterase-Dipstick Negative /ul (Negative); Nitrite-Dipstick Negative (Negative); Occult Blood-Urine 250 /ul (Negative); Protein-Dipstick 15 mg/dl (Negative); Specific Gravity, Urine 1.010 (1.002-1.030); Urine Bilirubin Dipstick Negative (Negative)
[2025-04-20] MEDS: Lidocaine 2% Viscous15 ML UDC 15 ML PO (11:53)
[2025-04-20 11:55] VITALS: BP 102/69; PULSE 92; RESP 14; O2SAT 100
[2025-04-20 11:55] LABS: Red Blood Cells-Urine 50-100 SEEN /hpf (0-5)
[2025-04-20 12:29] VITALS: BP 102/69; PULSE 92; RESP 14; TEMP 36.8; O2SAT 100
== END 2025-04-20 12:30 | disposition home or self-care (01) ==
PROVIDERS: Emergency Provider Emergency Medicine; Visit Provider Emergency Medicine
DX: R10.9 Unspecified abdominal pain (principal); K21.9 Gastro-esophageal reflux disease without esophagitis; M25.511 Pain in right shoulder
CPT/HCPCS: 73030; 74177; 76705; 80053; 81001; 83690; 84703; 85025; 93005; 96361; 96374; 99283; Q9967; A4216; J2405

== ENCOUNTER 2025-05-06 11:08 | Emergency (ER) | payer MEDICAID, SELFPAY ==
--- OUTSIDE RECORDS SUMMARY | 2024-05-27 17:19 | XMS RPT_ITS ---
Author Name Auto Generated Organization [facility] Care Team Providers Care Plastic Manager Name Role Phone NO, PHYSICIAN Primary Care Unavailable LISA MCCABE Attending Unavailab le PROBLEMS DATE TYPE CONDITION / CODE ATTENDING STATUS [facility] 05/27/2024 Admitting diagnosis Dizziness and giddiness / R42(ICD-10) LISA MCCABE [facility] 05/27/2024 Admitting diagnosis Dehydration / E86.0(ICD-10) LISA MCCABE [facility] PROCEDURES No Procedure Records Found RESULTS POC , URINE - RALS Collected: 05/27/2024 6:0 2 PM Status: F Source: [facility] Order Comment: Negative: [place] urine specimens, as indicated by a low specific gravity (<1.010) may not contain representitive levels of hCG. If is still suspected, a serum test or repeat urine test using a first morning urine specimen should be considered. TYPE CODE TESTS RESULT OUT OF RANGE REFERENCE UNITS LAB [id number] POC TEST, URINE Negative Negative Performed By: #### [id number] ### # [facility] [address] [place] [address] Tanesha Calle M.D. [id number] POC URINALYSIS DIPSTICK,AUTO - RALS Collected: 05/27/2024 6:00 PM Status: F Source: [facility] TYPE CODE TESTS RESULT OUT OF RANGE REFERENCE UNITS LAB [id number] POC SPECIFIC GRAVITY 1.020 1.005-1.025 LAB 4052453 POC PH, URINE 6.5 5.0-7.0 LAB 0369691 POC PROTEIN, URINE Negative Negative mg/dL LAB 3521924 POC GLUCOSE, URINE Negative Negative mg/dL LAB 4736116 POC KETONES, URINE 40 Abnormal Negative mg/dL LAB 1097746 POC BILIRUBIN, URINE Negative Negative LAB 6752592 POC UROBILINOGEN 1.0 < 2.0 mg/dL LAB 4132197 POC BLOOD, URINE Small Abnormal Negative LAB 6598949 POC NITRITE, URINE Negative Negative LAB 0816960 POC LEUKOCYTE ESTERASE, URINE Negative Negative Performed By: #### [id number] #### [facility] [address] [place], [place] [address] Tanesha Calle M.D. [id number] POC BASIC METABOLIC PANEL - RALS Collected: 05/27/2024 5:58 PM Status: F Source: [facility] Order Comment: [facility] has implemented the eGFR calculation approach that does not have a coefficient for race that conforms to the NKF-ASN Task Force Recommendations. TYPE CODE TESTS RESULT OUT OF RANGE REFERENCE UNITS LAB 2067491 POC GLUCOSE - EPOC 121 High 65-99 mg/dL LAB 8735541 POC BUN 7 Low 8-25 mg/dL LAB 5278104 POC CREATININE (EPOC) 0.66 0.40-1.10 mg/dL LAB 6864745 POC GFR 119 >=60 mL/min/1. 73 m2 Result Comment: Estimated GF R was calculated using the 2020 CKD-EPI creatinine equation. LAB 6217917 POC SODIUM 141 135-145 mmol/L LAB 5526952 POC POTASSIUM 3.6 3.5-5.1 mmol/L LAB 0362800 POC CHLORIDE 103 98-108 mmol/L LAB 5878209 POC TCO2 26 21-32 mmol/L LAB 2875160 POC IONIZED CALCIUM 4.8 4.5-5.3 mg/dL Performed By: #### [id number] #### [facility] [address] [place], [place] [address] Tanesha Calle M.D. [id number] POC CBC AND DIFFERENTIAL Collected: 05/27/2024 5:56 P M Status: F Source: [facility] TYPE CODE TESTS RESULT OUT OF RANGE REFERENCE UNITS LAB WBC WHITE BLOOD CELL COUNT 6.92 4.50-11.00 K/mcL LAB RBC RED BLOOD CELL COUNT 4.89 4.00-5.20 M/mcL LAB HGB HEMOGLOBIN 11.8 Low 12.0-16.0 g/dL LAB HCT HEMATOCRIT 37.3 36.0-46.0 % LAB MCV MEAN CORPUSCULAR VOLUME 76.3 Low 80.0-100.0 fL LAB MCH MEAN CORPUSCULAR HEMOGLOBIN 24.1 Low 26.0-34.0 pg LAB MCHC MEAN CORPUSCULAR HEMOGLOBIN CONC 31.6 31.0-37.0 g/dL LAB RDW RED CELL DISTRIBUTION WIDTH 17.7 High 11.6-14.8 % LAB PLT PLATELET COUNT 409 High 150-400 K/mcL LAB MPV MEAN PLATELET VOLUME 8.7 Low 9.4-12.4 fL LAB NEUTS% NEUTROPHILS RELATIVE PERCENT 52.1 % LAB LYMPHS% LYMPHOCYTES RELATIVE PERCENT 33.5 % LAB MONOS% MONOCYTES RELATIVE PERCENT 11.7 % LAB EOSIN% EOSINOPHILS RELATIVE PERCENT 2.0 % LAB BASO% BASOPHILS RELATIVE PERCENT 0.6 % LAB 03509 IG PERCENT 0.10 % Result Comment: The IG zena eter is the percentage of metamyelocytes, myelocytes and promyelocytes. An immature granulocyte count (IG) of 1% or more suggests the possibility of infection, an IG count of 3% is very likely related to an infection. LAB NEUTSABS NEUTROPHILS ABSOLUTE COUNT 3.60 1.70-7.00 K/mcL LAB LYMPHSABS LYMPHOCYTES ABSOLUTE COUNT 2.32 0.90-4.00 K/mcL LAB MONOSABS MONOCYTES ABSOLUTE COUNT 0.81 0.30-0.90 K/mcL LAB EOSABS EOSINOPHILS ABSOLUTE COUNT 0.14 0.00-0.50 K/mcL LAB BASOABS BASOPHILS ABSOLUTE COUNT 0.04 0.00-0.30 K/mcL LAB 76325 IG ABSOLUTE 0.01 0.00-0.30 K/mcL Performed By: #### [id number] #### [facility] [address] [place] [address] Tanesha Calle M.D. [id number] XR CERVICAL SPINE COMPLETE 4-5 VIEWS (STANDARD) Observed: 05/27/2024 5:40 PM Status: F Source: [facility] Order Comment: Injury/Trauma or Illness?:Illness/Other neck pain How long have you had these symptoms (acute/chronic)?:Acute Reason for exam?:. History of cancer?:. Surgeries, chemotherapy, or radiation?:. Type of Exam?:Initial Additional signs and symptoms?:. EXAMINATION: FIVE XRAY VIEWS OF THE CERVICAL SPINE 05/27/2024 5:43 pm COMPARISON: None. HISTORY: Acute neck pain. FINDINGS: No acute fracture seen. No spondylolisthesis. Straightening of normal cervical lordosis may be related to muscle spasm or patient positioning. No significant degenerative changes or evidence of neural foraminal stenosis. Soft tissues are unremarkable. IMPRESSION: Unremarkable cervical spine. Workstation ID: [id number] Dictated by: YANN FINLEY on Sat May 27, 2024 7:00:55 PM EDT Transcribed by: YANN FINLEY on [facility] May 27, 2024 7:00:55 PM EDT Finalized by: YANN FINLEY on [facility] May 27, 2024 7:00:55 PM EDT ED PROV NOTE Observed: 05/27/2024 5:38 PM Status: COMPLETED Source: [facility] PCP - No, Physician Chief Complaint Patient presents with Neck Pain Dizziness MEDICAL DECISION MAKING 33-year-old female who presents complaints of generalized weakness, dizziness and lightheadedness, neck pain for the past week. She is awake, alert, nontoxic, nonfocal neurologic exam. Her exam is benign. CBC with differential is unremarkable. BMP demonstrates no significant finding. Urinalysis positive for ketones. States she is not eating and drinking well. Requesting fluids. Will give IV fluid bolus and discharge home. Some improvement with meclizine. C spine x rays negative per radiology interpretation. Differential diagnoses considered include but not limited to vertigo, anemia, dehydration, electrolyte disturbance. The primary encounter diagnosis was Vertigo. A diagnosis of Dehydration was also pertinent to this visit. Jaswinder Harris, REGULATORY SPECIALIST HPI 33-year-old female who presents with complaints of neck pain that is worse with movement. Complains of generalized weakness in all extremities. Who complains of dizziness that is worse when she stands up. No nausea or vomiting. No chest pain, shortness of breath or abdominal pain. No fever, chills or cough. No recent travel or immobilization. Past Medical History History reviewed. No pertinent past medical history. Past Surgical History Past Surgical History: Procedure Laterality Date arm surgery Family History History reviewed. No pertinent family history. Review of Systems Constitutional: No unintentional weight loss, + dizziness and generalized weakness Eyes: No diplopia HENT: No tinnitus Breast: No nipple discharge Cardiovascular: No chest pain Respiratory: No hemoptysis Gastrointestinal: No dysphagia Genitourinary: No hematuria Integumentary: No new skin lesions Musculoskeletal: No muscle cramps Endocrine: No hair loss Physical Exam Vital Signs During ED Visit (as charted by nursing) Patient Vitals for the past 24 hrs: BP Temp Temp src Pulse Resp SpO2 Weight 05/27/24 1727 128/85 98.1 degrees F (36.7 degrees C) Oral 97 16 99 % 81.6 kg (180 lb) Physical Exam Vitals and nursing note reviewed. Constitutional: General: She is not in acute distress. Appearance: She is well-developed. She is not diaphoretic. HENT: Head: Normocephalic and atraumatic. Nose: Nose normal. Mouth/Throat: Pharynx: No oropharyngeal exudate. Eyes: General: No scleral icterus. Right eye: No discharge. Left eye: No discharge. Conjunctiva/sclera: Conjunctivae normal. Pupils: Pupils are equal, round, and reactive to light. Neck: Vascular: No JVD. Trachea: No tracheal deviation. Cardiovascular: Rate and Rhythm: Normal rate and regular rhythm. Heart sounds: Normal heart sounds. No murmur heard. No friction rub. No gallop. Pulmonary: Effort: Pulmonary effort is normal. No respiratory distress. Breath sounds: Normal breath sounds. No stridor. No wheezing or rales. Abdominal: General: Bowel sounds are normal. Palpations: Abdomen is soft. There is no mass. Tenderness: There is no abdominal tenderness. There is no guarding or rebound. Musculoskeletal: General: No tenderness. Normal range of motion. Cervical back: Neck supple. Lymphadenopathy: Cervical: No cervical adenopathy. Skin: General: Skin is warm and dry. Findings: No erythema or rash. Neurological: Mental Status: She is alert and oriented to person, place, and time. Cranial Nerves: No cranial nerve deficit. Motor: No abnormal muscle tone. Coordination: Coordination normal. Deep Tendon Reflexes: Reflexes are normal and symmetric. Psychiatric: Behavior: Behavior normal. Labs Reviewed POC CBC AND DIFFERENTIAL - Abnormal; Notable for the following components: Result Value Hemoglobin 11.8 (*) MCV 76.3 (*) MCH 24.1 (*) RDW - CV 17.7 (*) Platelets 409 (*) MPV 8.7 (*) All other components within normal limits POC BASIC METABOLIC PANEL - RALS - Abnormal; Notable for the following components: Glucose 121 (*) BUN 7 (*) All other components within normal limits Narrative: [facility] has implemented the eGFR calculation approach that does not have a coefficient for race that conforms to the NKF-ASN Task Force Recommendations. POC URINALYSIS DIPSTICK,AUTO - RALS - Abnormal; Notable for the following components: Ketones, UA 40 (*) Blood, UA Small (*) All other components within normal limits POC , URINE - RALS - Normal Narrative: Negative: Dilute urine specimens, as indicated by a low specific gravity (<1.010) may not contain representitive levels of hCG. If is still suspected, a serum test or repeat urine test using a first morning urine specimen should be considered. POC BASIC METABOLIC PANEL POC URINALYSIS DIPSTICK,AUTO POC , URINE Radiographic Imaging (if any) During ED Visit XR Cervical Spine Complete 4-5 Views (Standard) Final Result Unremarkable cervical spine. Workstation ID: [id number] Medications Ordered/Given During ED Visit Medications sodium chloride (PF) (NS) flush 5 mL (has no administration in time range) And sodium chloride 0.9% (NS) (has no administration in time range) sodium chloride 0.9% (NS) bolus 500 mL (500 mL Intravenous New Bag 05/27/241921) meclizine (ANTIVERT) tablet 25 mg (25 mg Oral Given 05/27/241815) Procedures Current Discharge Medication List START taking these medications Details meclizine (ANTIVERT) 25 mg tablet Take 1 (one) tablet (25 mg total) by mouth 3 (three) times a day as needed for dizziness . Qty: 15 tablet, Refills: 0 Jaswinder Harris CNP 05/27/241946 AUTHENTICATED BY JASWINDER HARRIS, ON 05/27/2024 19:47:12 PROGRESS Observed: 05/19/2024 1:02 PM Status: COMPLETED [id number] Author: OMAYRA HERRING APRN.GREGG Service: ? Author Type: Nurse Practitioner Type: Progress Notes Filed: 05/19/2024 13:04 Note Text: Nontoxic-appearing female presents urgent care chief complaint menstrual bleeding. Patient states has had a menstrual cycle that has lasted greater than 10 days. This is abnormal. Presents today for evaluation. I discussed with patient that it be best if she was seen in an PUNCHBOARD INSERTER's office or in the ER. Verbalized understand agrees with plan of care. Omayra Herring APRN.GREGG CNOV Observed: 05/19/2024 12:45 PM Status: COMPLETED Source: [facility] Office Visit (WSTR) SITA JOSE ([id number]) 1990 F Date Time Provider Department 05/19/24 12:45 PM OMAYRA HERRING [facility] During your visit today, we recorded the following information about you: Omayra Herring APRN.CNP 05/19/2024 1:04 PM Signed Nontoxic-appearing female presents urgent care chief complaint menstrual bleeding. Patient states has had a menstrual cycle that has lasted greater than 10 days. This is abnormal. Presents today for evaluation. I discussed with patient that it be best if she was seen in an PUNCHBOARD INSERTER's office or in the ER. Verbalized understand agrees with plan of care. Omayra Herring APRN.CNP Allergies As of Date: 05/19/2024 (Not on File) Date Reviewed: Never Reviewed Primary Visit Diagnosis:Procedure not carried out [Z53.9] Problem List As Of Date: 05/19/2024 (None) Encounter Status:Closed by OMAYRA HERRING on 05/19/24 ALLERGIES DATE TYPE / CODE NAME / CODE REACTION SEVERITY SOURCE 05/27/2024 DRUG INGREDI/[id number](S NOMED CT) IBUPROFEN Palpitations Low [facility] nter ENCOUNTERS ADMIT/DISCHARGE ACCOUNT NUMBER ADMITTING ENCOUNTER CLASS LOCATION SOURCE 05/27/2024/ 4 [id number] Emergency Building:REDR oom: [id number]: 02 [facility] 05/19/2024/ 4 [id number] [facility] ENCOUNTER GUARANTOR PAYER SUBSCRIBER SOURCE 05/27/2024 SITA KARLEYOB: [address] [place], [place] [address]Plu: () Primary Insurance:[employer] EXCHANGEPolicy Number: [id number] Date:[id number], [place] [address]GU: SITA KARLEYOB: [id number] [address] [place] [address] [facility] 05/27/2024 Secondary Insurance:[facility]: [id number] Date:[id number] [address], [place] [address]EQ: SITA KARLEYOB: [id number] [place] [address] [facility] 05/19/2024 Primary [facility]: [id number] Date:[id number] Name:Mary Anne [place] KARLEYOB: [id number] [place] [address] [facility]
[2025-05-06 11:10] VITALS: BP 110/78; PULSE 90; RESP 16; TEMP 35.8; O2SAT 99; BMI 35.6
--- NOTE | 2025-05-06 11:53 | US_ITS ---
PROCEDURE: TRANSVAGINAL NON- 05/06/2025 REASON FOR EXAM: VAGINAL BLEEDING FOR 1 MONTH. TECHNIQUE: Procedure Code: USTVAG Modality: US Procedure: TRANSVAGINAL NON- COMPARISON: CT Abdomen and Pelvis w/Contrast, 04/20/2025 US Pelvis complete, 05/26/2024 FINDINGS: ENDOMETRIUM: Heterogeneous and thickened measuring 18.0 mm in thickness (previously 21.5 mm), with increased internal vascularity. UTERUS: Anteverted. Normal size and contour measuring 9.0 x 6.7 x 5.6 cm. Hypoechoic 1.1 x 1.0 x 0.9 cm uterine lesion. CERVIX: Normal size and contour. RIGHT OVARY: Enlarged measuring 5.5 x 5.1 x 2.0 cm with a volume of 29.7 mL (previously 21.1 mL). Numerous small peripheral follicles. Normal blood flow. No adnexal mass. LEFT OVARY: Enlarged measuring 5.4 x 4.2 x 2.3 cm with a volume of 26.8 mL (previously 11.2 mL). Numerous small peripheral follicles. Normal blood flow. No adnexal mass. FREE FLUID: No free fluid. US/Transvaginal Non- IMPRESSION: 1. Heterogeneously thickened endometrium with internal vascularity. Considera tions include endometrial hyperplasia, endometrial polyp, or less likely endometrial carcinoma or endometritis. 2. Polycystic morphology of both ovaries. 3. Small uterine leiomyoma. Reading Location: [id number]
--- NOTE | 2025-05-06 11:58 | ED.VIS.FEGU ---
HPI HPI - Female History of Present Illness Chief Complaint: Vag Bleeding Narrative Narrative: Chief complaint and HPI: 34-year-old female who speaks Kyrgyz Creole presents for evaluation of vaginal bleeding and urinary frequency. History taken by patient as medical record. Patient has been seen in our emergency department before for irregular vaginal bleeding. Previous ultrasound showed fibroid in which she was referred to [facility]. She states she followed up with [facility] but nothing improved her vaginal bleeding. She does take norgestrel. Patient states she does not have regular menstrual cycles. States she bleeds almost every day. Bleeding is heavy. She goes through multiple menstrual pads. Denies any vaginal/pelvic pain. States she has had some urinary frequency. Does not believe herself to be . Denies dysuria. Has no history of in the past. She denies any fever, chills, abdominal pain, nausea, vomiting. Review of systems: See HPI Medications: As listed on the chart Allergies: As listed on the chart PFSH: Per chart Vital signs: As listed on the chart. Reviewed. Physical exam: Gen: A&O x3, NAD Head: Normocephalic, atraumatic Eyes: No sclera icterus, conjunctiva clear ENT: Moist mucous membranes CV: RRR, no murmurs Resp: Lungs CTA BL, no w/r/c GI: Abd soft, non-distended, non-tender, no r/r/g Pelvic: Normal external genitalia. No lesions, masses, or rashes appreciated. Cervix is non-friable. No cervical motion tenderness appreciated. No sign of PID on examination. No vaginal discharge. Vaginal bleeding from cervical os. Musc: Full ROM, no deformity Skin: Warm, dry Neuro: Alert, oriented, grossly intact, sensation intact Psych: Cooperative, appropriate mood and affect [facility] Medical History Ovarian cyst Broken arm Home Medications ?Medication ?Instructions ?Recorded ?Last Taken ?Type ferrous sulfate 325 mg (65 mg 325 mg PO DAILY 30 days #30 tabs 05/06/25 Unknown Rx iron) tablet (FeroSul) norgestrel 0.075 mg tablet 1 tab PO DAILY 05/06/25 Unknown History Allergy/AdvReac Type Severity Reaction Status Date / Time ibuprofen AdvReac PT UNSURE Verified 05/06/25 11:09 OF REACTION Family History no significant family his Surgical History History of surgery on arm Social History current occupational status: employed current occupation: [employer] Smoking Status: Never smoker alcohol intake: never substance use type: does not use seatbelt use: always do you feel safe at home: Yes additional social history: Single EXAM Physical Exam Const Vital Signs: 05/06/25 11:10 05/06/25 14:14 05/06/25 14:31 Temperature 96.4 F L 96.4 F L Temperature Source Temporal Pulse Rate 90 69 69 Respiratory Rate 16 18 18 Blood Pressure 110/78 101/72 101/72 Blood Pressure Mean 88 81 81 Pulse Ox 99 100 100 Oxygen Delivery Method Room Air MDM MDM MDM Narrative Medical decision making narrative: 34-year-old female who speaks Kyrgy[place] Creole presents for evaluation of vaginal bleeding and urinary frequency. History taken by patient as medical record. Patient has been seen in our emergency department before for irregular vaginal bleeding. On chart review, she had a previous ultrasound showed fibroid in which she was referred to [facility]. She states she followed up with [facility] but nothing improved her vaginal bleeding. She does take norgestrel. Patient states she does not have regular menstrual cycles that are heavy. Also endorsing urinary frequency without dysuria. Differential diagnosis includes but is not limited to dysmenorrhea, menorrhagia, , anemia, UTI, fibroid, endometrial cancer. Laboratory workup ordered including transvaginal ultrasound. CBC without leukocytosis. Patient has anemia of 7.8. Previous visit earlier this month was 7.7. Platelets elevated at 494. BMP unremarkable. Serum negative. UA negative for UTI but positive for blood. Likely secondary to her vaginal bleeding. Transvaginal ultrasound shows heterogeneous thickened endometrial with internal vascularity. Considerations include endometrial hyperplasia, endometrial polyp, or less likely endometrial carcinoma. Polycystic morphology of both ovaries. Small uterine leiomyoma. Patient has dysfunctional bleeding. Given her anemia, [facility] was consulted and I spoke with Dr. Cosby. Plan is to have patient seen in the office. Recommended placing her on iron supplements. Recommended her increasing her Norgestrel to 2 pills daily. Patient was updated on all the results and the plan. She confirmed understanding. Will send her home with prescription for iron supplements. Will have her repeat a CBC in 3 days to monitor anemia. Patient stable to discharge home. Return precautions explained. Impression: 1. Dysfunctional uterine bleeding 2. Chronic anemia secondary to #1 3. Thrombocytosis Lab Data Labs: Laboratory Results - last 24 hr 05/06/25 05/06/25 12:00 12:05 WBC 4.5 RBC 3.78 L Hgb 7.8 L Hct 26.4 L MCV 69.8 L MCH 20.6 L MCHC 29.5 L RDW Std Deviation 48.1 H RDW Coeff of Shalini 19.3 H Plt Count 494 H MPV 9.1 Immature Gran % (Auto) 0.200 Neut % (Auto) 47.7 Lymph % (Auto) 37.8 [place] % (Auto) 9.6 Eos % (Auto) 3.8 Baso % (Auto) 0.9 Absolute Neuts (auto) 2.2 Absolute Lymphs (auto) 1.70 Nucleated RBC % 0 Sodium 138 Potassium 3.8 Chloride 104 Carbon Dioxide 21.4 Anion Gap 12 BUN 12 Creatinine 0.72 Estim Creat Clear Calc 105.06 Est GFR (MDRD) Non-Af 112 BUN/Creatinine Ratio 16.9 Glucose 93 Calcium 8.9 Serum , Qual NEGATIVE Urine Color Yellow Urine Clarity Clear Urine pH 6.0 Ur Specific [place] 1.020 Urine Protein 30 H Urine Glucose (UA) Normal Urine Ketones Negative Urine Occult Blood 250 H Urine Nitrite Negative Urine Bilirubin Negative Urine Urobilinogen Normal Ur Leukocyte Esterase Negative Urine RBC 25-50 SEEN Urine WBC 0 SEEN Ur Squamous Epith Cells 0 SEEN Urine Bacteria 1+ Urine Mucus 0 SEEN Radiography Diagnostic Testing: Clinical Impression(s) from Imaging Studies Transvaginal US 05/06/25 11:53 IMPRESSION: 1. Heterogeneously thickened endometrium with internal vascularity. Considerations include endometrial hyperplasia, endometrial polyp, or less likely endometrial carcinoma or endometritis. 2. Polycystic morphology of both ovaries. 3. Small uterine leiomyoma. Reading Location: [facility] Discharge Plan Triage Chief Complaint: Vag Bleeding ED Provider: Erasmo Faulkner Dx/Rx/DC Orders Clinical Impression: DUB (dysfunctional uterine bleeding) Instructions: ED Dysfunctional Uterine Bleeding Prescriptions: New ferrous sulfate [FeroSul] 325 mg (65 mg iron) tablet 325 mg PO DAILY 30 Days Qty: 30 0RF No Action norgestrel 0.075 mg tablet 1 tab PO DAILY Other Ambulatory Orders: CBC-Complete Blood Cnt No Diff (Routine) Timeframe: 3 Days Facility: [facility] - Location: Laboratory [facility] Provider: Care Physician,No Primary Referrals: Leno Cosby MD [Med Staff - Active Staff, Obstetrics-Gynecology (OBGYN)] - As soon as possible Laurent Starkey MD [Med Staff - Active Staff, Family Practice] - 3-5 Days Activity Restrictions/Additional Instructions: You need to take 2 tabs of your Norgestrel daily to help reduce the bleeding. Will place you on iron supplements. You need to have your blood redrawn in 3 days to check your H&H. You need to call the [facility] office tomorrow as soon as possible to be be seen in their office. Return back to ED if symptoms change or worsen. Follow-up with a primary care physician. Print Language: Kyrgyz Felicia Disposition Disposition: Home, Self Care
[2025-05-06 12:09] LABS: Hematocrit 26.4 % (37-47); Hemoglobin 7.8 g/dL (12.0-15.0); Immature Granulocytes Count 0.010 X10^3/uL (0.0-0.0); Mean Corp Hgb Conc 29.5 g/dL (32-36); Mean Corpuscular Volume 69.8 fL (81-99); Mean Platelet Vol. 9.1 fl (6.2-12.0); NRBC Flagged by Analyzer 0 % (0-5); Platelet Count 494 K/mm3 (150-450); RBC Distribution Width CV 19.3 % (11.6-14.6); RBC Distribution Width SD 48.1 fl (35.1-43.9); Red Blood Count 3.78 M/mm3 (4.2-5.4); White Blood Count 4.5 K/mm3 (4.4-11.0)
[2025-05-06 12:19] LABS: Mucous, Urine 0 SEEN /hpf (<or=2+); Squamous Epithelial Cells - UA 0 SEEN /hpf (5-10)
[2025-05-06 12:22] LABS: Color, Urine Yellow (Yellow); Glucose, Dipstick Normal (Normal); Ketone-Dipstick Negative (Negative); Leukocyte Esterase-Dipstick Negative /ul (Negative); Nitrite-Dipstick Negative (Negative); Occult Blood-Urine 250 /ul (Negative); Protein-Dipstick 30 mg/dl (Negative); Specific Gravity, Urine 1.020 (1.002-1.030); Urine Bilirubin Dipstick Negative (Negative)
[2025-05-06 12:26] LABS: Internal QC Validated? YES +Cl - CLEAR BKGD; Pregnancy, Serum, hCG Quali. NEGATIVE Negative; Record Kit Lot#, Serum Preg. 0000964736
[2025-05-06 12:27] LABS: Anion Gap 12 (5-15); BUN 12 mg/dL (4-19); BUN/Creat Ratio 16.9 RATIO (10-20); Calcium,Total 8.9 mg/dL (7.6-11.0); Carbon Dioxide 21.4 mmol/L (21.0-32.0); Chloride 104 mmol/L (98-108); Estimated Creatinine Clearance 105.06 ml/min (50-250); Glucose 93 mg/dL (70-99); Potassium 3.8 mmol/L (3.3-5.1)
[2025-05-06 12:45] LABS: Red Blood Cells-Urine 25-50 SEEN /hpf (0-5)
[2025-05-06 14:14] VITALS: BP 101/72; PULSE 69; RESP 18; O2SAT 100
[2025-05-06 14:31] VITALS: BP 101/72; PULSE 69; RESP 18; TEMP 35.8; O2SAT 100
== END 2025-05-06 15:57 | disposition home or self-care (01) ==
PROVIDERS: Emergency Provider Surgery; Visit Provider Surgery
DX: N93.8 Other specified abnormal uterine and vaginal bleeding (principal); D64.9 Anemia, unspecified; D75.839 Thrombocytosis, unspecified
CPT/HCPCS: 76830; 80048; 81001; 84703; 85025; 99283; A4216

== ENCOUNTER → 2025-05-11 | Outpatient (CLI) | payer MEDICAID, SELFPAY ==
[2025-05-11 10:37] LABS: Hematocrit 26.7 % (37-47); Hemoglobin 7.7 g/dL (12.0-15.0); Immature Granulocytes Count 0.010 X10^3/uL (0.0-0.0); Mean Corp Hgb Conc 28.8 g/dL (32-36); Mean Corpuscular Volume 70.4 fL (81-99); Mean Platelet Vol. 9.5 fl (6.2-12.0); NRBC Flagged by Analyzer 0 % (0-5); POSITIVE MORPHOLOGY YES; Platelet Count 538 K/mm3 (150-450); RBC Distribution Width CV 20.8 % (11.6-14.6); RBC Distribution Width SD 49.1 fl (35.1-43.9); Red Blood Count 3.79 M/mm3 (4.2-5.4); White Blood Count 6.2 K/mm3 (4.4-11.0)
[2025-05-11 10:38] LABS: Differential Indicated SCAN CRITERIA MET
[2025-05-11 11:12] LABS: Anisocytosis 1+; Polychromasia 1+
== END | disposition home or self-care (01) ==
LOC: MFPLAB 09:16
PROVIDERS: Visit Provider Family Medicine
DX: N93.9 Abnormal uterine and vaginal bleeding, unspecified (principal)
CPT/HCPCS: 36415; 85025